=== PATIENT | male | born 1970 | race Caucasian/White ===

== ENCOUNTER → 2016-09-20 | Outpatient (CLI) | payer BC | LOC: MOB LAB 10:10 | PROVIDERS: ATTEND Physician Assistant Medical | DX: J02.9 Acute pharyngitis, unspecified (principal) | CPT/HCPCS: 87070 ==

== ENCOUNTER 2016-09-22 16:59 | Emergency (ER) | payer BC ==
[2016-09-22 17:15] VITALS: RESP 18; TEMP 97.4
[2016-09-22] MEDS ORDERED: FLUORESCEIN 1 MG EYE STRIP ONE (17:18)
[2016-09-22] MEDS ORDERED: TETRACAINE 0.5% - 2 ML EYE DROPS ONE (17:18)
[2016-09-22] MEDS ORDERED: FLUORESCEIN 1 MG EYE STRIP LEFT EYE ONE (17:25)
[2016-09-22] MEDS ORDERED: TETRACAINE 0.5% - 2 ML EYE DROPS EACH EYE ONE (17:25)
--- NOTE | 2016-09-23 00:47 | PDOC ---
Eye Complaint HPI - General Chief Complaint: Eye Problem / Injury Stated Complaint: left eye red and getting worse Date Seen by Provider: 09/22/16 Time Seen by Provider: 17:10 Source: POSITIVE: Patient Exam Limitations: POSITIVE: No limitations Nurse's Notes Reviewed & Considered: Yes - History of Present Illness Initial Comments: The patient is a 46-year-old male. He states that for the past week he has had some conjunctival redness and some mucoid discharge from his left I. He states that he has a sensation of "itching and irritation"to this eye. He does not wear contact lenses but he does wear glasses. He is been to the urgent care clinic for this problem in the past. Initially he was placed on tobramycin eyedrops and subsequently he was placed on oral Bactrim DS and oral azithromycin. He states that occasionally his vision appears "blurry". History of type II diabetes on oral medication. He smokes a half a pack of cigarettes per day. Have you received a tetanus shot in the past 10 years?: Unknown Location: Left Eye Timing: REPORTS: Gradual, Getting Worse Duration: <1 week (Approximately a week) Severity: Moderate Quality: REPORTS: Itching, Pressure ( "Irritation") Recent Injury: REPORTS: No Associated Symptoms: REPORTS: Matting, Eyelid Swelling, Foreign Body Sensation Context: DENIES: Foreign Body, Direct Trauma, Projectile Injury, Penetration Injury, Chemical Exposure, Eyes Washed at Scene, Welding Arc Exposure, Tanning [place] Exposure, Wearing Reading Glasses, Wearing Protect. Glasses, Soft Contact Lenses, Hard Contact Lenses, Recent Contact w/ Illness, [place] [facility], Other Location at Time of Onset: REPORTS: Home Concurrent Injuries: DENIES: Neck, Head, Back, Chest, Abdomen, Extremities, Face , Other Modifying Factors: DENIES: Nothing Exacerbates, Exertion, Movement, Rest, Ice, Positioning, Nothing Relieves, Other Similar Symptoms Previously: No Recent Care Received: REPORTS: Recently Seen, Treated by MD (As above) Any Prior Injuries Related to Current Complaint?: No - Patient Home Medications Home Medications: Home Medications Calc/D3/Mag/Zn/Senior Technical Specialist/Sky/[place] [Calcium 600 mg + Vit D Tab] 2 each PO DAILY #180 tab 06/09/13 Cholecalciferol [Vitamin D] 2,000 unit PO DAILY #90 cap 11/16/14 Albuterol Sulfate [Proair Hfa] 2 puff INH Q4-6H #1 05/09/15 Albuterol Sulfate 1 each NEB Q4-6H #30 vial 11/16/15 Mometasone/Formoterol [Dulera 200 Mcg/5 Mcg Inhaler] 2 puff INH BID #1 inh 11/23 Tens Unit Electrodes [Tens Replacement Back Pads] 1 each MC MONTHLY #2 each 12/04 Tens Unit [Tens 502] 1 each MC DAILY #1 each 11/24/15 Vilazodone Hydrochloride [Viibryd] 40 mg PO DAILY #30 tab 11/24/15 Simvastatin 1 tab PO DAILY #30 tab 12/14/15 Empagliflozin/Linagliptin [Glyxambi 10 Mg-5 Mg Tablet] 1 each PO QD #30 tab 05/07 Metformin HCl 500 mg PO BID #180 tab 08/31/16 Tobramycin 2 drop LEFT EYE QID #1 drop 09/17/16 Sulfamethoxazole/Trimethoprim [Bactrim Ds Tablet] 1 tab PO BID #20 tab 09/20/16 Azithromycin [Zithromax] 1,000 mg PO ONCE #1 packet 09/21/16 Nystatin/Triamcin [Mycolog Ii Cream] 15 gm TP Q8H #1 cream.gm. 09/22/16 Sulfacetamide Oph Soln 10% [Bleph 10 Ophth Soln] 50 drp EACH EYE Q4H #1 bottle 09/22/16 - Patient Allergies Allergies/Adverse Reactions: Allergies Allergy/AdvReac Type Severity Reaction Status Date / Time hydrocodone AdvReac Intermediate ITCHING Verified 09/22/16 17:01 Past Medical History - heen HEENT History: Denies History Additional HEENT History: MISSING TOOTH ON BOTTOM ROW Cardiovascular History: Denies History Respiratory History: Asthma, Other (please comment) Additional Respiratory History: chronic tobacco abuse. chronic cough Gastrointestinal History: Other (please comment) Additional Gastrointestinal History: Hx of bilateral inguinal hernia repair. Hx of appendectomy. Genitourinary History: Denies History Additional Endocrine History: PRE-DIABETIC Musculoskeletal History: Osteoporosis, Back Pain, Other (please comment) Prosthesis or Implant: No Additional Musculoskeletal History: Hx of left third digit repair with hardware. Hx of L4-5 discectomy. Neurological History: Denies History Blood Disorders: Denies History Psychiatric History: Anxiety Disorders History of Sexually Transmitted Diseases: No Cancer History: Denies History In Past Year Been Physically Harmed or Verbally Threatened: No History of MDRO: No History of Other Communicable Diseases: No Tobacco Use: Current Every Day Smoker Alcohol Use: Occasionally Substance Use Type: None Previous Surgical History: Yes Type / Date of Surgery: LEFT MIDDLE FINGER PINNING/DISCECTOMY L4-5/ APPY/ INGUINAL HERNIA RIGHT X 2 AND LEFT X 1 Anesthesia Reactions: No Malignant Hyperthermia: No Significant Family History: Asthma, Heart disease, Cancer, Diabetes Past Medical History Reviewed: Reviewed - No Changes ROS - Limitations ROS Limitations: No Limitations Constitution: REPORTS: Denies Symptoms Cardiovascular: REPORTS: Denies Cardiac Symptoms Respiratory: REPORTS: Denies Resp Symptoms Neurological: REPORTS: Denies Neuro Symptoms Gastrointestinal: REPORTS: Denies GI Symptoms Endocrine: REPORTS: Denies Symptoms Musculoskeletal: REPORTS: Denies MS Symptoms Genitourinary: REPORTS: Denies Symptoms Eyes: REPORTS: Red Eyes (Left), Itching Eyes (Left), Eye Drainage (Left, mucoid discharge) ENT: REPORTS: Denies Symptoms Skin: REPORTS: Other (Blepharitis, left) Lympathic: REPORTS: Denies Lympathic Symptoms Immunologic: POSITIVE: Denies Symptoms Psychiatric: POSITIVE: Denies Psych Symptoms Eye Complaint Physical Exam - General Appearance General Appearance: POSITIVE: Alert, Cooperative, No Acute Distress, No Evidence of Trauma - Visual Acuity / Pupil Size Pupil Size: 3 mm: Bilateral (PERRLA) - HEENT Head / Face: POSITIVE: Atraumatic, Normal Inspection, No Facial Swelling Eyes: POSITIVE: PERRL, EOM's Intact, Eyelids Uninjured, Conjunctivae Uninjured, Fluorescein Exam Normal, No Nystagmus, No Globe Trauma, Sclera Normal, Normal Corneal Inspection, Normal Fundoscopic Exam, Ant. Chamber Nml Inspect., Posterior Segments Normal, Conjunctivae (red) (Left), Edema (Mild upper and lower lid edema due to Bleph arteritis). NEGATIVE: Fluorescein Dye Uptake Oropharynx: POSITIVE: External Inspection Nml, Pharynx Inspect. Nml, Airway Intact, Voice Normal, Moist Mucous Membranes, No Oral Injury, Lips Normal, Gums Normal, No Drooling, No Thrush, Normal Gag Reflex Dental: POSITIVE: No Dental Injury - Skin Skin: POSITIVE: Normal Color, No Skin Rash - Neck / Back Neck/Back: POSITIVE: Normal Inspection, Non-Tender, Painless ROM - Respiratory / Cardiovascular Respiratory / CVS: POSITIVE: No Respiratory Distress, Breath Sounds Normal, Regular Rate/Rhythm, Heart Sounds Normal Peripheral Pulses: Radial (R): 2+, Radial (L): 2+ - Abdomen Abdomen: Soft: (All Quadrants), Normal Bowel Sounds: (All Quadrants), Denies Tenderness: (All Quadrants), No Splenomegaly: (All Quadrants), No Hepatomegaly: (All Quadrants), No Guarding: (All Quadrants), No Rebound: (All Quadrants), No Palpable Pulse: (All Quadrants), No Palpabale Mass: (All Quadrants), No Distention: (All Quadrants), No Rigidity: (All Quadrants) - Neurological / Psychological Neuro / Psych: POSITIVE: Oriented to Person, Oriented to Place, Oriented to Time , CN's Normal as Tested, Normal Speech, Normal Cognition, Appropriate Mood, Appropriate Affect Images - Eyes Eye: 1 - Conjunctivitis 2 - Conjunctivitis 3 - Blepharitis 4 - Blepharitis Eye Complaint Progress - Patient's Progress Pain Medication Addressed: POSITIVE: Yes School/Work Release Addressed: POSITIVE: Not Applicable (Recommended Advil or Tylenol) Re-Examine Time:: 17:55 Status: POSITIVE: Unchanged - Consult Counseled: POSITIVE: Patient, RE: DX, RE: Need for F/U Patient Care Time - Estimated PCT Patient Care Time (In Minutes): 30 Vital Signs - Recent Vital Signs Vital Signs: Vital Signs (Last 8 hours) Temp Pulse Resp BP Pulse Ox 09/22/16 17:08 97.4 F 110 H 18 148/88 95 - VS Reviewed Vital Signs Reviewed: Yes Discharge Clinical Impression: Conjunctivitis, Blepharitis of eyelid of left eye Discharge Disposition: Discharged to Home Condition: Fair Prescriptions / Orders: Sulfacetamide Oph Soln 10% [Bleph 10 Ophth Soln] 50 drp EACH EYE Q4H #1 bottle Nystatin/Triamcin [Mycolog Ii Cream] 15 gm TP Q8H #1 cream.gm. Patient Instructions Given at Discharge: Conjunctivitis (ED), Blepharitis (ED) Additional Instructions: Discontinue tobramycin. Start sulfacetamide eye drops, 4 drops left eye every 4 hours while awake. Also wish hours Mycolog-II cream into upper and lower eyelids as directed. Follow-up with your eye physician if not improving well in 4 to 5 days. Return here anytime if condition worsens Follow Up With: SAM MALAGON [Primary Care Provider] - (Instructions as above. Follow-up with your eye doctor. Return here anytime if condition worsens.)
== END 2016-09-22 18:05 | disposition home or self-care (01) ==
LOC: ER 16:59
DX: H10.32 Unspecified acute conjunctivitis, left eye (principal); H01.005 Unspecified blepharitis left lower eyelid; H01.004 Unspecified blepharitis left upper eyelid
CPT/HCPCS: 99282

== ENCOUNTER → 2016-09-23 | Outpatient (CLI) | payer BC ==
[~2016-09-23] MED LIST: SULFACETAMIDE 10% - 5 ML EYE DROPS ONE
== END ==
LOC: ER 11:58
PROVIDERS: ATTEND Family Medicine
DX: H10.32 Unspecified acute conjunctivitis, left eye (principal); H01.005 Unspecified blepharitis left lower eyelid; H01.004 Unspecified blepharitis left upper eyelid

== ENCOUNTER 2016-10-07 02:38 | Emergency (ER) | payer BC ==
[2016-10-07] MEDS ORDERED: Sodium Chloride 0.9% 1,000 ML PRIMARY IV ONE (03:00)
[2016-10-07 03:14] VITALS: RESP 18
[2016-10-07 03:22] LABS: BASOPHILS # (AUTO) 0.06 10*3/UL; BASOPHILS % (AUTO) 0.5 % (0-1); EOSINOPHILS # (AUTO) 0.04 10*3/UL; EOSINOPHILS % (AUTO) 0.3 % (0-8); HEMATOCRIT 50.2 % (42.0-52.0); HEMOGLOBIN 17.7 g/dL (14.0-18.0); LYMPHOCYTES # (AUTO) 4.17 10*3/uL; MEAN CORPUSCULAR HEMOGLOBIN 33.1 PG (27-31); MEAN CORPUSCULAR HGB CONC 35.3 g/dL (33-37); MEAN PLATELET VOLUME 10.7 FL (7.4-12.2); MONOCYTES # (AUTO) 1.16 10*3/UL (0.3-0.8); MONOCYTES % (AUTO) 9.1 % (5-15); NEUTROPHILS # (AUTO) 7.36 10*3/UL; NEUTROPHILS % (AUTO) 57.3 % (50-80); RED BLOOD COUNT 5.34 10^6/uL (4.70-6.10)
[2016-10-07 03:24] LABS: BILIRUBIN,URINE NEGATIVE (NEG); CLARITY,URINE CLEAR (CLEAR); COLOR,URINE YELLOW; GLUCOSE, URINE (UA) 500 mg/dL (NEG); NITRATE,URINE NEGATIVE (NEG); OCCULT BLOOD,URINE NEGATIVE (NEG); PLATELET MORPHOLOGY COMMENT NORMAL MORPHOLOGY (NORM); PROTEIN,URINE NEGATIVE (NEG); RBC MORPHOLOGY COMMENT NORMAL MORPHOLOGY (NORM); URINE SAMPLE TYPE CLEAN CATCH URINE; UROBILINOGEN,URINE 0.2 EU/dL (0.2); WBC MORPHOLOGY COMMENT NORMAL MORPHOLOGY (NORM)
[2016-10-07 03:33] LABS: AMPHETAMINE SCREEN NEGATIVE (NEG); BARBITURATE SCREEN, URINE NEGATIVE (NEG); CANNABINOID SCREEN,URINE NEGATIVE (NEG); COCAINE SCREEN NEGATIVE (NEG); METHADONE URINE SCREEN NEGATIVE (NEG); METHAMPHETAMINES SCREEN,URINE NEGATIVE (NEG); OPIATE SCREEN,URINE NEGATIVE (NEG); URINE SPECIFIC GRAVITY - MAN 1.005
[2016-10-07 03:34] LABS: BLOOD UREA NITROGEN 8 mg/dL (7-22); BUN/CREATININE RATIO 8.88 (6-20); CALCIUM 9.3 mg/dL (8.7-10.7); EST GLOMERULAR FILTRATION > 60 (>60 ml/min/1.73m(2)); SALICYLATE < 1.0 mg/dl (0-20)
--- NOTE | 2016-10-07 04:33 | PDOC ---
Psych/Suicidal/OD HPI - General Chief Complaint: Suicidal Ideation / Attempt Stated Complaint: SUICIDAL Date Seen by Provider: 10/07/16 Time Seen by Provider: 02:50 Source: POSITIVE: Patient Exam Limitations: POSITIVE: No limitations Nurse's Notes Reviewed & Considered: Yes - History of Present Illness Initial Comments: The patient is a 46-year-old male who is brought to the emergency room by police officers. Patient call the police department stating that he is been suicidal for the past 2 days and was fearful he might harm himself. Patient states that his left him recently and emptied out there joint checking a counts before he left. History of [id number] diabetes mellitus. Patient states he did attempt to cut his wrists when he was a teenager. He states that "I would shoot myself if I had a gun". He has been drinking alcohol tonight; he denies the use of any illegal substances. He smokes half a pack of cigarettes per day. Timing: REPORTS: Gradual, Getting Worse Duration: >24 hours (Feeling suicidal for approximately 2 days) Severity: Moderate Quality: REPORTS: Other (Patient denies pain anywhere) Intent: REPORTS: Suicide, Prior Suicidal Thoughts Context: REPORTS: Spouse, Sexual Orientation, Other (Financial problems) Associated Symptoms: REPORTS: Depressed, Suicidal Thoughts Arrived By: REPORTS: Police Similar Symptoms Previously: Yes (as a teenager) Recent Care Received: REPORTS: Denies Any Prior Injuries Related to Current Complaint?: No - Patient Home Medications Home Medications: Home Medications Medication Instructions Recorded Confirmed Calc/D3/Mag/Zn/Screen Repairer Crusher/Sky/[place] 2 each PO DAILY #180 tab 06/09/13 09/22/16 [Calcium 600 mg + Vit D Tab] Cholecalciferol [Vitamin D] 2,000 unit PO DAILY #90 cap 11/16/14 09/22/16 Albuterol Sulfate [Proair Hfa] 2 puff INH Q4-6H #1 05/09/15 09/22/16 Albuterol Sulfate 1 each NEB Q4-6H #30 vial 11/16/15 09/22/16 Mometasone/Formoterol [Dulera 200 2 puff INH BID #1 inh 11/24/15 09/22/16 Mcg/5 Mcg Inhaler] Tens Unit Electrodes [Tens 1 each MC MONTHLY #2 each 11/24/15 10/07/16 Replacement Back Pads] Tens Unit [Tens 502] 1 each MC DAILY #1 each 11/24/15 10/07/16 Vilazodone Hydrochloride [Viibryd] 40 mg PO DAILY #30 tab 11/24/15 10/07/16 Simvastatin 1 tab PO DAILY #30 tab 12/14/15 09/22/16 Empagliflozin/Linagliptin 1 each PO QD #30 tab 08/31/16 09/22/16 [Glyxambi 10 Mg-5 Mg Tablet] Metformin HCl 500 mg PO BID #180 tab 08/31/16 09/22/16 Nystatin/Triamcin [Mycolog Ii 15 gm TP Q8H #1 cream.gm. 09/22/16 Cream] Hydrocodone/Acetaminophen 1 tab PO Q4-6H #30 tab 09/24/16 [Hydrocodon-Acetaminophen 5-325] - Patient Allergies Allergies/Adverse Reactions: Allergies Allergy/AdvReac Type Severity Reaction Status Date / Time hydrocodone AdvReac Intermediate ITCHING Verified 10/07/16 03:14 Past Medical History - heen HEENT History: Denies History Additional HEENT History: MISSING TOOTH ON BOTTOM ROW Cardiovascular History: Denies History Respiratory History: Asthma, Other (please comment) Additional Respiratory History: chronic tobacco abuse. chronic cough Gastrointestinal History: Other (please comment) Additional Gastrointestinal History: Hx of bilateral inguinal hernia repair. Hx of appendectomy. Genitourinary History: Denies History Additional Endocrine History: PRE-DIABETIC Musculoskeletal History: Osteoporosis, Back Pain, Other (please comment) Prosthesis or Implant: No Additional Musculoskeletal History: Hx of left third digit repair with hardware. Hx of L4-5 discectomy. Neurological History: Denies History Blood Disorders: Denies History Psychiatric History: Anxiety Disorders History of Sexually Transmitted Diseases: No Male Reproductive History: Denies History Cancer History: Denies History In Past Year Been Physically Harmed or Verbally Threatened: No History of MDRO: No History of Other Communicable Diseases: No Tobacco Use: Current Every Day Smoker Alcohol Use: Occasionally Substance Use Type: None Previous Surgical History: Yes Type / Date of Surgery: LEFT MIDDLE FINGER PINNING/DISCECTOMY L4-5/ APPY/ INGUINAL HERNIA RIGHT X 2 AND LEFT X 1 Anesthesia Reactions: No Malignant Hyperthermia: No Significant Family History: Asthma, Heart disease, Cancer, Diabetes Past Medical History Reviewed: Reviewed - No Changes ROS - Limitations ROS Limitations: No Limitations Constitution: REPORTS: Denies Symptoms Cardiovascular: REPORTS: Denies Cardiac Symptoms Respiratory: REPORTS: Denies Resp Symptoms Neurological: REPORTS: Denies Neuro Symptoms Gastrointestinal: REPORTS: Denies GI Symptoms Endocrine: REPORTS: Denies Symptoms Musculoskeletal: REPORTS: Denies MS Symptoms Genitourinary: REPORTS: Denies Symptoms Eyes: REPORTS: Denies Symptoms ENT: REPORTS: Denies Symptoms Skin: REPORTS: Denies Skin Symptoms Lympathic: REPORTS: Denies Lympathic Symptoms Immunologic: POSITIVE: Denies Symptoms Psychiatric: POSITIVE: Depression, Suicidal Thoughts Psych/Suicidal/OD Exam - General Appearance General Appearance: POSITIVE: No Acute Distress, Alert - HEENT HEENT: POSITIVE: Head Inspection Nml, Eyes Inspection Nml, Ears Inspection Nml, Nose Inspection Nml, Oral/Dental Inspect. Nml, Pharynx Inspect. Nml, PERRL, EOMI - Pupil Size Pupil Size: 3 mm: Bilateral (PERRLA) - Neurological/Psychological Mental Status: POSITIVE: Depressed Affect, Suicidal Ideations. NEGATIVE: Appropriate Mood (Depressed), Appropriate Affect (Depressed) Orientation: POSITIVE: Oriented x3 Cranial Nerves: POSITIVE: telepathist Intact as Tested Sensory/Motor: POSITIVE: Normal Motor Response, Normal Sensory Response, Normal Reflexes, Normal Gait When asked, pt ADMITS continued consideration of suicide:: Yes - Neck/Back Neck/Back: POSITIVE: Normal Inspection, Supple - Respiratory Respiratory: POSITIVE: No Respiratory Distress, Breath Sounds Normal - CVS Cardiovascular: POSITIVE: Regular Rate and Rhythm, Heart Sounds Normal, Equal Pulses, Strong Pulses Peripheral Pulses: Radial (R): 2+, Radial (L): 2+ - Abdomen Abdomen: Soft: (All Quadrants), Normal Bowel Sounds: (All Quadrants), Denies Tenderness: (All Quadrants), No Splenomegaly: (All Quadrants), No Hepatomegaly: (All Quadrants), No Guarding: (All Quadrants), No Rebound: (All Quadrants), No Palpable Pulse: (All Quadrants), No Palpabale Mass: (All Quadrants), No Distention: (All Quadrants), No Rigidity: (All Quadrants) - Skin Skin: POSITIVE: Intact, Normal For Race, Warm, Dry, No Rash - Extremities Extremity: Non-Tender: (All Extremities), Normal ROM: (All Extremities), Normal Inspection: (All Extremities) Psych/Suicidal/OD Progress - Results Reviewed by me Lab Results Reviewed: Yes Lab Results:: Laboratory Results 10/07/16 Range/Units 03:19 WBC 12.81 H (4.8-10.8) 10^3/uL RBC 5.34 (4.70-6.10) 10^6/uL Hgb 17.7 (14.0-18.0) g/dL Hct 50.2 (42.0-52.0) % MCV 94.0 H (80-90) FL MCH 33.1 H (27-31) PG MCHC 35.3 (33-37) g/dL RDW Std Deviation 45.9 (39-50) fL RDW Coeff of [place] 13.5 (11.5-14.5) % Plt Count 209 (140-350) 10*3/uL MPV 10.7 (7.4-12.2) FL Immature Gran % (Auto) 0.2 (0-5) % Neut % (Auto) 57.3 (50-80) % Lymph % (Auto) 32.6 (10-50) % [place] % (Auto) 9.1 (5-15) % Eos % (Auto) 0.3 (0-8) % Baso % (Auto) 0.5 (0-1) % Immature Gran # (Auto) 0.02 10*3/UL Neut # (Auto) 7.36 10*3/UL Lymph # (Auto) 4.17 10*3/uL [place] # (Auto) 1.16 H (0.3-0.8) 10*3/UL Eos # (Auto) 0.04 10*3/UL Baso # (Auto) 0.06 10*3/UL WBC Morphology Comment Normal morphology (NORM) Plt Morphology Comment Normal morphology (NORM) RBC Morph Comment Normal morphology (NORM) Sodium 142 (135-145) meq/L Potassium 3.6 L (3.8-5.2) meq/L Chloride 104 (98-112) meq/L Carbon Dioxide 20 L (23-33) meq/L Anion Gap 18 (5-20) BUN 8 (7-22) mg/dL Creatinine 0.9 (0.70-1.50) mg/dL Estimated GFR > 60 (>60 ml/min/1.73m(2)) BUN/Creatinine Ratio 8.88 (6-20) Glucose 122 H (78-110) mg/dL Calculated Osmolality 292.0 (267-292) mOsm/kg Calcium 9.3 (8.7-10.7) mg/dL Total Bilirubin 0.7 (0.3-1.2) mg/dL AST 25 (21-57) IU/L ALT 25 (21-72) IU/L Alkaline Phosphatase 84 (38-126) IU/L Total Protein 8.1 H (6.1-8.0) g/dL Albumin 5.0 H (3.5-4.8) g/dL Globulin 3.1 (2.50-4.10) g/dL Albumin/Globulin Ratio 1.60 (1.3-2.0) mg/g TSH 0.863 (0.2700-4.2000) uIU/mL Ur Collection Type Clean catch urine Urine Color Yellow Urine Clarity Clear (CLEAR) Urine pH 5.0 (5.0-8.5) Ur Specific [place] 1.005 (1.005-1.030) U Specif Grav (Refrac) 1.005 Urine Protein Negative (NEG) mg/dl Urine Glucose (UA) 500 (NEG) mg/dL Urine Ketones Negative (NEG) Urine Occult Blood Negative (NEG) Urine Nitrate Negative (NEG) Urine Bilirubin Negative (NEG) Urine Urobilinogen 0.2 (0.2) EU/dL Ur Leukocyte Esterase Negative (NEG) Ur Culture Indicated? Culture not set Salicylates < 1.0 (0-20) mg/dl Urine Opiates Screen Negative (NEG) Ur Buprenorphine Negative (NEG) Ur Oxycodone Screen Negative (NEG) Urine Methadone Screen Negative (NEG) Ur Propoxyphene Screen Negative (NEG) Acetaminophen < 10.0 (0-30) ug/mL Barbiturate Screen Negative (NEG) U Tricyclic Antidepress Negative (NEG) Phencyclidine Screen Negative (NEG) Amphetamines Screen Negative (NEG) U Methamphetamines Scrn Negative (NEG) Benzodiazepines Screen Negative (NEG) Cocaine Screen Negative (NEG) U Marijuana (THC) Screen Negative (NEG) Serum Alcohol 229 H (0-10) mg/dL - Patient's Progress Pain Medication Addressed: POSITIVE: Not Applicable School/Work Release Addressed: POSITIVE: Not Applicable Re-Examine Time: 04:25 Re-Examine Comment: Evaluation by counselor from [facility] complete Status: POSITIVE: Unchanged Poison Control Notification (name of person in comment): No - Medical Clearance for Psych Referral Toxic Causes: NEGATIVE: PCP, Amphetamines, Hallucinogens, Acetaminophen, ASA, ETOH, Other Toxic Ingestion, Other Infectious Causes: NEGATIVE: Meningitis, Encephalitis, Sepsis, Other Metabolic Causes: NEGATIVE: Thyroid, Hypoglycemia, Drug Withdrawal, Hypoxemia, Electrolytes, Other Neurological/Vascular Causes: NEGATIVE: CVA, TIA, Seizure, Trauma, Other Cleared medically for psychiatric referral: Yes - Consult Consult (If Yes, Name of Consulting MD & Time Called): Yes ([facility], [id number]) Consulting MD will see pt:: POSITIVE: Recommended Transfer Counseled: POSITIVE: Patient, RE: Lab Results, RE: DX, RE: Need for F/U Patient Care Time - Estimated PCT Patient Care Time (In Minutes): 34 Vital Signs - Recent Vital Signs Vital Signs: Vital Signs (Last 8 hours) Temp Pulse Resp BP Pulse Ox 10/07/16 02:41 98.6 F 107 H 18 129/106 93 - VS Reviewed Vital Signs Reviewed: Yes Discharge Clinical Impression: Feeling suicidal Discharge Disposition: Transferred to Psychiatric Facility Condition: Good Follow Up With: SAM MALAGON [Primary Care Provider] - Date Decision to Transfer to Another Facility: 10/07/16 Time Decision to Transfer to Another Facility: 04:00
[2016-10-07 06:02] VITALS: TEMP 99.1
== END 2016-10-07 06:10 ==
LOC: ER 02:38
DX: R45.851 Suicidal ideations (principal); F32.2 Major depressive disorder, single episode, severe without psychotic features
CPT/HCPCS: 80053; 80305; 80320; 80329; 81003; 84443; 85025; 90791; 99283; J7030

== ENCOUNTER → 2016-10-24 | Outpatient (CLI) | payer BC ==
[2016-10-24 18:49] LABS: BASOPHILS # (AUTO) 0.06 10*3/UL; BASOPHILS % (AUTO) 0.5 % (0-1); EOSINOPHILS # (AUTO) 0.05 10*3/UL; EOSINOPHILS % (AUTO) 0.4 % (0-8); HEMATOCRIT 50.3 % (42.0-52.0); HEMOGLOBIN 17.4 g/dL (14.0-18.0); LYMPHOCYTES # (AUTO) 3.46 10*3/uL; MEAN CORPUSCULAR HGB CONC 34.6 g/dL (33-37); MEAN CORPUSCULAR VOLUME 95.3 FL (80-90); MEAN PLATELET VOLUME 9.8 FL (7.4-12.2); MONOCYTES # (AUTO) 0.85 10*3/UL (0.3-0.8); MONOCYTES % (AUTO) 7.2 % (5-15); NEUTROPHILS # (AUTO) 7.34 10*3/UL; NEUTROPHILS % (AUTO) 62.3 % (50-80); RED BLOOD COUNT 5.28 10^6/uL (4.70-6.10)
[2016-10-24 19:24] LABS: BLOOD UREA NITROGEN 10 mg/dL (7-22); CALCIUM 9.3 mg/dL (8.7-10.7); CHOL/HDL RATIO 3.51 RATIO (0-4.0); EST GLOMERULAR FILTRATION > 60 (>60 ml/min/1.73m(2)); HDL CHOLESTEROL 49 mg/dL (40-150); SERUM ALBUMIN 4.5 g/dL (3.5-4.8); SERUM CHOLESTEROL 172 mg/dL (120-200)
[2016-10-24 19:25] LABS: HEMOGLOBIN A1C 6.63 % (4.2-6.0)
[2016-10-24 19:40] LABS: PLATELET MORPHOLOGY COMMENT NORMAL MORPHOLOGY (NORM); RBC MORPHOLOGY COMMENT NORMAL MORPHOLOGY (NORM); WBC MORPHOLOGY COMMENT NORMAL MORPHOLOGY (NORM)
== END ==
LOC: LAB 18:37
PROVIDERS: ATTEND Family Medicine
DX: Z00.00 Encounter for general adult medical examination without abnormal findings (principal); E11.9 Type 2 diabetes mellitus without complications; E55.9 Vitamin D deficiency, unspecified; I10 Essential (primary) hypertension; E78.4 Other hyperlipidemia; J45.909 Unspecified asthma, uncomplicated; M81.0 Age-related osteoporosis without current pathological fracture; F17.210 Nicotine dependence, cigarettes, uncomplicated; Z12.5 Encounter for screening for malignant neoplasm of prostate
CPT/HCPCS: 80053; 80061; 82306; 83036; 84443; 85025; G0103